=== PATIENT | female | born 1955 | race Two or more races ===

== ENCOUNTER 2017-04-15 20:15 | Emergency (ER) | payer OTHER ==
[~2017-04-15] VITALS: Ht 162.6 cm; Wt 68.0 kg
--- NOTE | 2017-04-15 20:26 | Emergency Room Report ---
History of Present Illness General Chief Complaint: Multiple Trauma/Fall Source: Patient Present Illness HPI 61-year-old female, history of liver transplant, presents with fall. Patient is a she had a mechanical fall, fell out of her car, caught her herself with her hands. Now complaining of pain to her left breast/left ribs. Worse with taking a deep inspiration. No abdominal pain, no nausea vomiting. No blurry vision. Also states that she hit her chin. No LOC Allergies: Coded Allergies: ACETAMINOPHEN (Verified Allergy, Mild, "Hallucinations", 04/15/17) HYDROCODONE (Verified Allergy, Mild, "Hallucinations", 04/15/17) METOCLOPRAMIDE (Verified Allergy, Unknown, 04/15/17) Patient History Past Medical History: see triage record Past Surgical History: none Pertinent Family History: none Reviewed Nursing Documentation: PMH: Agreed, PSxH: Agreed Review of Systems All Other Systems: negative except mentioned in HPI Physical Exam Vital Signs Date Time Temp Pulse Resp B/P (MAP) Pulse Ox O2 Delivery O2 Flow Rate FiO2 04/15/17 20:09 98.0 84 16 123/86 99 Room Air 98.1 Sp02 EP Interpretation: reviewed, normal General Appearance: alert, GCS 15, non-toxic, mild distress Head: normocephalic - chin redness/edema. Eyes: bilateral eye normal inspection, bilateral eye PERRL, bilateral eye EOMI ENT: normal ENT inspection, normal pharynx, normal voice, moist mucus membranes Neck: normal inspection, full range of motion, supple Respiratory: normal inspection, lungs clear, normal breath sounds, no respiratory distress, no retraction, no wheezing, speaking full sentences, chest symmetrical Cardiovascular #1: regular rate, rhythm, other - +L sided rib tenderness / ant chest tenderness Cardiovascular #2: 2+ radial (R), 2+ radial (L) Gastrointestinal: normal inspection, non tender, soft, non-distended, no guarding Musculoskeletal: normal inspection, back normal, normal range of motion, non- tender Neurologic: normal inspection, alert, oriented x3, responsive, canteen operator III-XII nml as tested, motor strength/tone normal, sensory intact, normal gait, speech normal Psychiatric: normal inspection, judgement/insight normal, memory normal Skin: normal inspection, normal color, no rash, warm/dry, well hydrated, normal turgor Medical Decision Making Diagnostic Impression: Primary Impression: Fall Additional Impression: Contusion of rib on left side ER Course 61-year-old female with mechanical fall now with left-sided chest pain DDX: Rib contusion versus fracture Plan: X-ray ER course: Patient has remained stable during ED stay. Awake and alert Given morphine, not in resp distress Disposition: Patient is to be discharged to home. Followup with pcp. In 5 days Please note that this Emergency Department Report was dictated using [employer] ride operator technology software, occasionally this can lead to erroneous entry secondary to interpretation by the dictation equipment L Rib X-ray CXR: Ordered: Yes 1 view Indication: Pain EP interpretation: Yes Interpretation: No fracture, No consolidation, no effusion, no PTX, no acute cardiopulmonary disease Impression: No acute disease Electronically signed by Shahzad Chilel MD Last Vital Signs Date Time Temp Pulse Resp B/P (MAP) Pulse Ox O2 Delivery O2 Flow Rate FiO2 04/15/17 20:09 98.0 84 16 123/86 99 Room Air 98.1 Disposition: HOME, SELF-CARE Condition: Improved Shahzad Chilel M.D. Apr 15, 2017 20:26
[2017-04-15] MEDS ORDERED: BISACODYL5 MG ORAL (20:34)
[2017-04-15] MEDS ORDERED: AMLODIPINE BES2.5 MG ORAL (20:34)
[2017-04-15] MEDS ORDERED: FOLIC ACID1 MG ORAL (20:34)
[2017-04-15] MEDS ORDERED: ALPRAZOLAM1 MG ORAL (20:34)
[2017-04-15] MEDS ORDERED: MAGNESIUM OXID500 M2 PO (20:34)
[2017-04-15] MEDS ORDERED: COLACE100 MG ORAL (20:34)
[2017-04-15] MEDS ORDERED: LEXAPRO10 MG ORAL (20:34)
[2017-04-15] MEDS ORDERED: MS CONTIN30 MG ORAL (20:34)
[2017-04-15] MEDS ORDERED: CALCIUM CA500 MG/5 M PO (20:34)
[2017-04-15] MEDS ORDERED: CEFUROXIME250 MG PO (20:34)
[2017-04-15] MEDS ORDERED: ACYCLOVIR400 MG ORAL (20:34)
[2017-04-15] MEDS ORDERED: VITAMIN D400 INTLU ORAL (20:34)
[2017-04-15] MEDS ORDERED: PROGRAF5 MG PO (20:34)
[2017-04-15] MEDS ORDERED: MYRBETRIQ50 MG PO (20:35)
[2017-04-15] MEDS ORDERED: Morphine Sulfate 4mg/ml Inj IM ONE (21:15)
[2017-04-15 21:25] VITALS: BP 122/82
--- NOTE | 2017-04-16 10:34 | Diagnostic Imaging Report ---
Indication: Left sided rib pain. Trauma. Findings: 4 views of the left chest wall was obtained for evaluation of the ribs. There is no acute fracture identified. There is no soft tissue swelling demonstrated. The lung is essentially clear. There is no pneumothorax. The costophrenic angle is sharp. Other osseous structures visualized are unremarkable. Impression: Negative left unilateral rib series
== END 2017-04-15 21:25 | disposition home or self-care (01) ==
LOC: EDBD 20:15 → EMR 20:25
DX: S20.212A Contusion of left front wall of thorax, initial encounter (principal); Z88.6 Allergy status to analgesic agent; Z88.8 Allergy status to other drugs, medicaments and biological substances; W17.89XA Other fall from one level to another, initial encounter; Y92.810 Car as the place of occurrence of the external cause
CPT/HCPCS: 71101; 96372; 99283; J2270